=== PATIENT | female | born 1940 | race Caucasian/White ===

== ENCOUNTER 2020-06-28 23:30 | Observation (INO) | payer MEDICARE ==
[2020-06-29] MEDS ORDERED: ACETAMINOPHEN TAB 500 MG TAB PO PRN (05:59)
[2020-06-29] MEDS ORDERED: NITROGLYCERIN SL TABS 0.4 MG TAB SUBLINGUAL PRN (05:59)
[2020-06-29] MEDS ORDERED: TEMAZEPAM 15 MG CAP PO PRN (05:59)
[2020-06-29 08:05] LABS: Basophils % (A) 0 %; Eosinophils % (A) 1 %; HCT 38.1 % (34.0-46.0); HGB 12.6 gm/dL (11.4-16.0); Lymphocytes # (A) 2.2 k/uL (1.0-4.8); Lymphocytes % (A) 41 %; MCH 28.4 pg (25.0-35.0); MCHC 33.1 g/dL (31.0-37.0); MCV 85.6 fL (80.0-100.0); Mean Platelet Volume 7.1; Monocytes # (A) 0.4 k/uL (0-1.0); Monocytes % (A) 8 %; Neutrophils # (A) 2.6 k/uL (1.3-7.7); Neutrophils % (A) 48 %; Platelet Count 270 k/uL (150-450); RBC 4.45 m/uL (3.80-5.40); RDW 14.3 % (11.5-15.5); WBC 5.3 k/uL (3.8-10.6)
[2020-06-29 08:18] LABS: Calcium 9.5 mg/dL (8.4-10.2); Potassium 4.1 mmol/L (3.5-5.1)
[2020-06-29] MEDS: DILTIAZEM CD 240 MG CAP.ER.24H PO SCH (08:55)
--- NOTE | 2020-06-29 09:57 | P.HPIM ---
History of Present Illness This is a pleasant 79 years old female with past medical history of COPD, gastroesophageal reflux disease, hypertension, hyperlipidemia, supraventricular tachycardia, history of diverticulitis. Patient was transferred from [facility]. As per records patient presents because of chest pain on the left side radiating to the back Patient states that she went to [facility] yesterday because she has chest pain on on all 4 distal last 2 weeks however yesterday was more severe about 8/10 so she decided to come to the hospital. Her chest pain is on the left side go around the left armpit to the back. Her pain felt like sharp, With associated palpitation on and off that usually wakes her up from sleep and after a while it goes away but yesterday it resisted. Usually they have been together the palpitation and chest pain. She denies dyspnea or coughing or upper respiratory symptoms. No nausea vomiting or diarrhea or abdominal pain. No dysuria or urinary symptoms. No headache or weakness. Patient is complaining of from chronic numbness in her 3 left medial toes, but she denies weakness or slurred speech or headache or blurred vision She denies a smoking, alcohol or illicit drugs She used to see the automatic blocker for her SVT but he is retired now [facility] records showing: showing normal WBC 6.9K, hemoglobin 13.2, platelets 312 K. Normal sodium 142, potassium 3.8, creatinine 0.9, liver enzymes not elevated with AST 2200 ALT 15 and total bilirubin 0.3. CPK is 118. Troponin less than 0.0122. Magnesium 2.0. ProBNP is 259 CTA of the chest/abdomen/pelvis :( per radiologist's report) No acute abnormality of the CTA chest, abdomen or pelvis, large hiatal hernia, no pulmonary embolism, no aortic dissection additional chronic and incidental findings include mild to moderate stenosis of the right renal artery and mild of the celiac artery. Chronic mild compression deformity of L4, moderate kyphosis of the cervical and thoracic spine. CT of the head without contrast: No acute intracranial abnormality per radiologist Report EKG showing sinus tachycardia at [address]-T changes. [facility]: EKG: Normal sinus rhythm at 83 BPM with no significant ST-T changes and QTC 470. There is mild ST segment elevation in lead 2, 3, V5 and 6, looks like urethral presentation Review of Systems CONSTITUTIONAL: No fever, no malaise, no fatigue. HEENT: No recent visual problems or hearing problems. Denied any sore throat. CARDIOVASCULAR: No orthopnea, PND, no palpitations, no syncope. PULMONARY: No shortness of breath, no cough, no hemoptysis. GASTROINTESTINAL: No diarrhea, no nausea, no vomiting, no abdominal pain. Normoactive bowel sounds. NEUROLOGICAL: No headaches, no weakness, no numbness. HEMATOLOGICAL: Denies any bleeding or petechiae. GENITOURINARY: Denies any burning micturition, frequency, or urgency. MUSCULOSKELETAL/RHEUMATOLOGICAL: Denies any joint pain, swelling, or any muscle pain. ENDOCRINE: Denies any polyuria or polydipsia. Past Medical History Past Medical History: Chest Pain / Angina, COPD, GERD/Reflux, Hyperlipidemia, Hypertension, Pneumonia, Supraventricular Tachycardia (SVT) Additional Past Medical History / Comment(s): Diverticulitis, nodule in the lung History of Any Multi-Drug Resistant Organisms: None Reported Past Surgical History: Hernia Repair, Hysterectomy, Orthopedic Surgery Additional Past Surgical History / Comment(s): Partial Hysterectomy Past Anesthesia/Blood Transfusion Reactions: No Reported Reaction Past Psychological History: Anxiety Smoking Status: Never smoker - Past Family History Mother Family Medical History: Cancer Additional Family Medical History / Comment(s): Breast CA Father Family Medical History: Cancer Additional Family Medical History / Comment(s): Skin CA Medications and Allergies Home Medications Medication Instructions Recorded Confirmed Type Cholecalciferol (Vitamin D3) 125 mcg PO HS 06/29/20 06/29/20 History [Vitamin D3 (5000 Iu)] Cognium 1 tab PO BID 06/29/20 06/29/20 History Diltiazem Cd [Cardizem Cd] 240 mg PO DAILY 06/29/20 06/29/20 History Magnesium 100mg 100 mg PO HS 06/29/20 06/29/20 History Multivitamin [Multivitamins Adult 1 tab PO DAILY 06/29/20 06/29/20 History Gummies] Nitroglycerin Sl Tabs [Nitrostat] 0.4 mg SUBLINGUAL Q5M PRN 06/29/20 06/29/20 History Omeprazole 20 mg PO HS 06/29/20 06/29/20 History Pravastatin Sodium [Pravachol] 20 mg PO HS 06/29/20 06/29/20 History Temazepam [Restoril] 15 mg PO HS 06/29/20 06/29/20 History Allergies Allergy/AdvReac Type Severity Reaction Status Date / Time oxytetracycline Allergy Unknown Verified 06/29/20 08:57 [From Terramycin] Sulfa (Sulfonamide Allergy Swelling Verified 06/29/20 08:57 Antibiotics) aspirin AdvReac Unknown Verified 06/29/20 08:57 Physical Exam Vitals: Vital Signs Temp Pulse Resp BP Pulse Ox 06/29/20 03:27 98.0 F 86 18 137/74 96 06/29/20 02:01 98.2 F 96 18 134/80 97 06/29/20 02:00 96 18 Intake and Output 06/28/20 06/29/20 06/29/20 22:59 06:59 14:59 Intake Total 10 Balance 10 Intake: IV 10 0.9 10 Other: Voiding Method Toilet # Voids 1 Weight 59.2 kg GENERAL: The patient is alert and oriented x3, not in any acute distress. Well developed, well nourished. HEENT: Pupils are round and equally reacting to light. EOMI. No scleral icterus. No conjunctival pallor. Normocephalic, atraumatic. No pharyngeal erythema. No thyromegaly. CARDIOVASCULAR: S1 and S2 present. No murmurs, rubs, or gallops. PULMONARY: Chest is clear to auscultation, no wheezing or crackles. ABDOMEN: Soft, nontender, nondistended, normoactive bowel sounds. No palpable organomegaly. MUSCULOSKELETAL: No joint swelling or deformity. EXTREMITIES: No cyanosis, clubbing, or pedal edema. NEUROLOGICAL: Gross neurological examination did not reveal any focal deficits. SKIN: No rashes. 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 Positive troponin, cardiology consult. Continue with aspirin. Telemetry. Start patient on Plavix, patient is ALLERGIC to aspirin. Follow-up echocardiogram Labs and medication were reviewed.. Continue same treatment. Continue with symptomatic treatment. Resume home medication. Monitor lytes and vitals. DVT and GI prophylaxis. Further recommendations depends on the clinical course of the patient DVT prophylaxis: Subcutaneous heparin GI Prophylaxis: Ppi PT/OT: Pending Prognosis is guarded
[2020-06-29] MEDS ORDERED: CLOPIDOGREL 75 MG TAB PO SCH (10:15)
--- NOTE | 2020-06-29 12:04 | P.CRDCN ---
History of Present Illness Consult date: 06/29/20 History of present illness: HISTORY OF PRESENT ILLNESS: This is a 79-year-old female with a past medical history significant for COPD, GERD, hyperlipidemia, and SVT. Patient used to follow with Dr. Iglesias. We have been asked to see the patient in consultation for chest pain. Patient examined at the bedside. patient states she was at home yesterday laying down when she began developing chest discomfort around 2 PM. She states the pain was on the left side of her chest and went underneath her left breast and wrapped around to her back. She describes the pain as a sharp sensation. She denies any associated shortness of breath. She denied nausea or vomiting. She denied dizziness or lightheadedness. Denied any radiation to her jaw or arm. She states the pain lasted until approximately 10 PM and then resolved on its own. She initially presented to [facility] and was transferred to [facility] for further evaluation. Patient had 2 negative troponins drawn and [facility]. Since then she has had one negative troponin at this facility. At the time of examination she denies any chest pain or pressure. She denies any shortness of breath. She states she has never been a smoker. She reports having a stress test performed greater than 5 years ago which was negative to her knowledge. She denies for having a cardiac catheterization previously. EKG reveals sinus mechanism with no signs of acute ischemia Chest xray performed at [facility] revealed large hiatal hernia with no acute cardiopulmonary process Patient underwent CTA of the chest at [facility] revealing no pericardial effusion or adenopathy. Lungs are clear without infiltrate or pleural effusion. No pneumothorax. No evidence of pulmonary embolism. Laboratory data: WBC 5.3. Hemoglobin 12.6. Platelet count 270. Sodium 140. Potassium 4.1. BUN 12. Creatinine 0.78. Magnesium 2.0. Troponin negative 3. TSH 2.640. Current home cardiac medications include pravastatin 20 mg daily and Cardizem CD 240 mg daily REVIEW OF SYSTEMS: At the time of my exam: CONSTITUTIONAL: Denies fever or chills. HEENT: Denies blurred vision, vision changes, or eye pain. Denies hemoptysis CARDIOVASCULAR: Denies chest pain. Denies orthopnea. Denies PND. Denies palpitations RESPIRATORY: Denies shortness of breath. GASTROINTESTINAL: Denies abdominal pain. Denies nausea or vomiting. HEMATOLOGIC: Denies bleeding disorders. GENITOURINARY: Denies any blood in urine. SKIN: Denies pruitis. Denies rash. PHYSICAL EXAM: VITAL SIGNS: Reviewed. GENERAL: Well-developed in no acute distress. HEENT: Head is normocephalic. Pupils are equal, round. Sclerae anicteric. Mucous membranes of the mouth are moist. Neck supple. No JVD or thyromegaly LUNGS: Respirations even and unlabored. Lungs essentially clear to auscultation bilaterally. HEART: Regular rate and rhythm. S1 and S2 heard. ABDOMEN: Soft. Nondistended. Nontender. EXTREMITIES: Normal range of motion. No clubbing or cyanosis. Peripheral pulses intact. No lower extremity edema NEUROLOGIC: Awake and alert. Oriented x 3. ASSESSMENT: Chest pain, troponins negative 3 Hyperlipidemia History of SVT COPD GERD Large hiatal hernia PLAN: An acute coronary event has been ruled out Resume home cardiac medications Continue to monitor blood pressure. Continue telemetry monitoring Obtain 2-D echo to assess cardiac structure and function If no significant abnormalities noted on echocardiogram the patient may be discharged home today from a cardiac perspective and follow up on an outpatient basis for outpatient stress testing. Further recommendations pending patient course Nurse practitioner note has been reviewed by physician. Signing provider agrees with the documented findings, assessment, and plan of care. Past Medical History Past Medical History: Chest Pain / Angina, COPD, GERD/Reflux, Hyperlipidemia, Hypertension, Pneumonia, Supraventricular Tachycardia (SVT) Additional Past Medical History / Comment(s): Diverticulitis, nodule in the lung History of Any Multi-Drug Resistant Organisms: None Reported Past Surgical History: Hernia Repair, Hysterectomy, Orthopedic Surgery Additional Past Surgical History / Comment(s): Partial Hysterectomy Past Anesthesia/Blood Transfusion Reactions: No Reported Reaction Past Psychological History: Anxiety Smoking Status: Never smoker - Past Family History Mother Family Medical History: Cancer Additional Family Medical History / Comment(s): Breast CA Father Family Medical History: Cancer Additional Family Medical History / Comment(s): Skin CA Medications and Allergies Home Medications Medication Instructions Recorded Confirmed Type Cholecalciferol (Vitamin D3) 125 mcg PO HS 06/29/20 06/29/20 History [Vitamin D3 (5000 Iu)] Cognium 1 tab PO BID 06/29/20 06/29/20 History Diltiazem Cd [Cardizem Cd] 240 mg PO DAILY 06/29/20 06/29/20 History Magnesium 100mg 100 mg PO HS 06/29/20 06/29/20 History Multivitamin [Multivitamins Adult 1 tab PO DAILY 06/29/20 06/29/20 History Gummies] Nitroglycerin Sl Tabs [Nitrostat] 0.4 mg SUBLINGUAL Q5M PRN 06/29/20 06/29/20 History Omeprazole 20 mg PO HS 06/29/20 06/29/20 History Pravastatin Sodium [Pravachol] 20 mg PO HS 06/29/20 06/29/20 History Temazepam [Restoril] 15 mg PO HS 06/29/20 06/29/20 History Allergies Allergy/AdvReac Type Severity Reaction Status Date / Time oxytetracycline Allergy Unknown Verified 06/29/20 08:57 [From Terramycin] Sulfa (Sulfonamide Allergy Swelling Verified 06/29/20 08:57 Antibiotics) aspirin AdvReac Unknown Verified 06/29/20 08:57 Physical Exam Vitals: Vital Signs Temp Pulse Resp BP Pulse Ox 06/29/20 08:49 98.2 F 87 16 114/72 95 06/29/20 08:00 87 16 06/29/20 03:27 98.0 F 86 18 137/74 96 06/29/20 02:01 98.2 F 96 18 134/80 97 06/29/20 02:00 96 18 Intake and Output 06/28/20 06/29/20 06/29/20 22:59 06:59 14:59 Intake Total 10 Balance 10 Intake: IV 10 0.9 10 Other: Voiding Method Toilet Toilet # Voids 1 Weight 59.2 kg Results 06/29/20 07:17 06/29/20 07:17 Cardiac Enzymes 06/29/20 Range/Units 07:17 Troponin I <0.012 (0.000-0.034) ng/mL CBC 06/29/20 Range/Units 07:17 WBC 5.3 (3.8-10.6) k/uL RBC 4.45 (3.80-5.40) m/uL Hgb 12.6 (11.4-16.0) gm/dL Hct 38.1 (34.0-46.0) % Plt Count 270 (150-450) k/uL Comprehensive Metabolic Panel 06/29/20 Range/Units 07:17 Sodium 140 (137-145) mmol/L Potassium 4.1 (3.5-5.1) mmol/L Chloride 108 H (98-107) mmol/L Carbon Dioxide 26 (22-30) mmol/L BUN 12 (7-17) mg/dL Creatinine 0.78 (0.52-1.04) mg/dL Glucose 101 H (74-99) mg/dL Calcium 9.5 (8.4-10.2) mg/dL Current Medications Generic Name Dose Route Start Last Admin Trade Name Freq PRN Reason Stop Dose Admin Acetaminophen 500 mg 06/29/20 05:59 Acetaminophen Tab 500 Mg Tab PO TID PRN pain Cholecalciferol 125 mcg 06/29/20 21:00 Cholecalciferol 25 Mcg (1000 Iu) Tablet PO HS GAMALIEL Clopidogrel Bisulfate 75 mg 06/29/20 10:15 Clopidogrel 75 Mg Tab PO DAILY GAMALIEL Diltiazem HCl 240 mg 06/29/20 09:00 06/29/20 08:55 Diltiazem Cd 240 Mg Cap.Er.24h PO 240 mg DAILY GAMALIEL Administration Heparin Sodium (Porcine) 5,000 unit 06/29/20 21:00 Heparin Sodium,Porcine 5,000 Unit/Ml 1 Ml Vial SQ Q12HR GAMALIEL Magnesium Oxide 400 mg 06/29/20 21:00 Magnesium Oxide 400 Mg Tab PO HS GAMALIEL Nitroglycerin 0.4 mg 06/29/20 05:59 Nitroglycerin Sl Tabs 0.4 Mg Tab SUBLINGUAL ONCE PRN Chest Pain Pantoprazole Sodium 40 mg 06/29/20 21:00 Pantoprazole 40 Mg Tablet PO HS GAMALIEL Pravastatin Sodium 20 mg 06/29/20 21:00 Pravastatin Sodium 20 Mg Tab PO HS GAMALIEL Temazepam 15 mg 06/29/20 05:59 Temazepam 15 Mg Cap PO HS PRN Insomnia Intake and Output 06/28/20 06/29/20 06/29/20 22:59 06:59 14:59 Intake Total 10 Balance 10 Intake: IV 10 0.9 10 Other: Voiding Method Toilet Toilet # Voids 1 Weight 59.2 kg 06/29/20 07:17 06/29/20 07:17
--- NOTE | 2020-06-29 14:40 | ECHOF ---
Referral Reason:Chest pain, LV function MEASUREMENTS -------- HEIGHT: 160.0 cm WEIGHT: 59.0 kg BP: IVSd: 1.0 cm (0.6 - 1.1) LVIDd: 2.9 cm (3.9 - 5.3) LVPWd: 0.9 cm (0.6 - 1.1) EDV(Teich): 32 ml IVSs: 1.4 cm LVIDs: 1.9 cm LVPWs: 1.4 cm %IVS Thck: 43 % ESV(Teich): 11 ml EF(Teich): 64 % %FS: 34 % SV(Teich): 20 ml LA Diam: 2.6 cm (2.7 - 3.8) RVIDd: 2.7 cm (< 3.3) LALs A4C: 4.5 cm LAAs A4C: 12.3 cm LAESV A-L A4C: 28 ml LAESV MOD A4C: 27 ml LALs A2C: 5.5 cm LAAs A2C: 15.4 cm LAESV A-L A2C: 37 ml LAESV MOD A2C: 35 ml LAESV(A-L): 36 ml LAESV Index (A-L): 22.06 ml/m Ao Diam: 2.9 cm (2.0 - 3.7) AV Cusp: 2.0 cm (1.5 - 2.6) EPSS: 0.7 cm MV E David: 0.99 m/s MV DecT: 215 ms MV Dec [place]: 4.6 m/s MV A David: 1.00 m/s MV E/A Ratio: 0.99 MV PHT: 62 ms AV Vmax: 1.31 m/s AV maxP.85 mmHg AR Vmax: 3.16 m/s AR maxP.97 mmHg AR PHT: 768 ms AR Dec Time: 2648 ms AR Dec [place]: 1.2 m/s TR Vmax: 2.31 m/s TR maxP.31 mmHg RAP: 5.00 mmHg RVSP: 26.31 mmHg MV EF SLOPE: 43.15 mm/s (70 - 150) MV EXCURSION: 13.54 mm (> 18.000) FINDINGS -------- Sinus rhythm. This was a technically good study. The left ventricular size is normal. Left ventricular wall thickness is normal. Overall left vent ricular systolic function is normal with, an EF between 60 - 65 %. The right ventricle is normal in size. Normal LA size by volume 22+/-6 ml/m2. The right atrium is normal in size. Interatrial and interventricular septum intact. There is mild aortic valve sclerosis. There is mild aortic regurgitation. Mild mitral annular calcification present. There is trace to mild mitral regurgitation. Mild tricuspid regurgitation present. Right ventricular systolic pressure is normal at < 35 mmHg. There is no pulmonic regurgitation present. The aortic root size is normal. Normal inferior vena cava with normal inspiratory collapse consistent with estimated right atrial pre ssure of 5 mmHg. There is no pericardial effusion. CONCLUSIONS -------- 1. The left ventricular size is normal. 2. Left ventricular wall thickness is normal. 3. Overall left ventricular systolic function is normal with, an EF between 60 - 65 %. 4. There is mild aortic valve sclerosis. 5. There is mild aortic regurgitation. 6. Mild mitral annular calcification present. 7. There is trace to mild mitral regurgitation. 8. Mild tricuspid regurgitation present. 9. There is no pericardial effusion. VP PLATFORMS: Ria Atwood RDCS
[2020-06-29] MEDS: HEPARIN SODIUM,PORCINE 5,000 UNIT/ML 1 ML VIAL SQ SCH (19:52)
[2020-06-29] MEDS ORDERED: PANTOPRAZOLE 40 MG TABLET PO SCH (21:00)
[2020-06-29] MEDS ORDERED: MAGNESIUM OXIDE 400 MG TAB PO SCH (21:00)
[2020-06-29] MEDS ORDERED: CHOLECALCIFEROL 25 MCG (1000 IU) TABLET PO SCH (21:00)
[2020-06-29] MEDS ORDERED: PRAVASTATIN SODIUM 20 MG TAB PO SCH (21:00)
[2020-06-30 03:55] VITALS: TEMP 98
[2020-06-30 08:24] VITALS: BP 110/67; PULSE 89; RESP 16
[2020-06-30] MEDS: HEPARIN SODIUM,PORCINE 5,000 UNIT/ML 1 ML VIAL SQ SCH (08:24)
[2020-06-30] MEDS: DILTIAZEM CD 240 MG CAP.ER.24H PO SCH (08:24)
--- NOTE | 2020-06-30 12:30 | P.PN ---
Subjective Progress Note Date: 06/30/20 HISTORY OF PRESENT ILLNESS: This is a 79-year-old female with a past medical history significant for COPD, GERD, hyperlipidemia, and SVT. Patient used to follow with Dr. Iglesias. We have been asked to see the patient in consultation for chest pain. Patient examined at the bedside. patient states she was at home yesterday laying down when she began developing chest discomfort around 2 PM. She states the pain was on the left side of her chest and went underneath her left breast and wrapped around to her back. She describes the pain as a sharp sensation. She denies any assoc iated shortness of breath. She denied nausea or vomiting. She denied dizziness or lightheadedness. Denied any radiation to her jaw or arm. She states the pain lasted until approximately 10 PM and then resolved on its own. She initially presented to [facility] and was transferred to [facility] for further evaluation. Patient had 2 negative troponins drawn and [facility]. Since then she has had one negative troponin at this facility. At the time of examination she denies any chest pain or pressure. She denies any shortness of breath. She states she has never been a smoker. She reports having a stress test performed greater than 5 years ago which was negative to her knowledge. She denies for having a cardiac catheterization previously. EKG reveals sinus mechanism with no signs of acute ischemia Chest xray performed at [facility] revealed large hiatal hernia with no acute cardiopulmonary process Patient underwent CTA of the chest at [facility] revealing no pericardial effusion or adenopathy. Lungs are clear without infiltrate or pleural effusion. No pneumothorax. No evidence of pulmonary embolism. Laboratory data: WBC 5.3. Hemoglobin 12.6. Platelet count 270. Sodium 140. Potassium 4.1. BUN 12. Creatinine 0.78. Magnesium 2.0. Troponin negative 3. TSH 2.640. Current home cardiac medications include pravastatin 20 mg daily and Cardizem CD 240 mg daily 06/30/2020 Patient examined this morning at the bedside. Patient denies chest pain or pressure. She denies shortness of breath. Vital signs are stable. Echocardiogram completed revealed ejection fraction 60-65%, mild tricuspid regurgitation, trace to mild mitral regurgitation, mild aortic regurgitation. PHYSICAL EXAM: VITAL SIGNS: Reviewed. GENERAL: Well-developed in no acute distress. HEENT: Head is normocephalic. Pupils are equal, round. Sclerae anicteric. Mucous membranes of the mouth are moist. Neck supple. No JVD or thyromegaly LUNGS: Respirations even and unlabored. Lungs essentially clear to auscultation bilaterally. HEART: Regular rate and rhythm. S1 and S2 heard. ABDOMEN: Soft. Nondistended. Nontender. EXTREMITIES: Normal range of motion. No clubbing or cyanosis. Peripheral pulses intact. No lower extremity edema NEUROLOGIC: Awake and alert. Oriented x 3. ASSESSMENT: Chest pain, troponins negative 3 Hyperlipidemia History of SVT COPD GERD Large hiatal hernia PLAN: Patient may be discharged home today from a cardiac perspective and follow up on an outpatient basis for outpatient stress testing. We will sign off. Please reconsult if needed. Nurse practitioner note has been reviewed by physician. Signing provider agrees with the documented findings, assessment, and plan of care. Objective - Vital Signs Vital signs: Vital Signs Temp 98.0 F 06/30/20 08:23 Pulse 89 06/30/20 08:23 Resp 16 06/30/20 08:23 BP 110/67 06/30/20 08:23 Pulse Ox 95 06/30/20 08:23 Intake & Output 06/29/20 06/30/20 06/30/20 18:59 06:59 18:59 Intake Total 356 10 Balance 356 10 Weight 59 kg Intake: IV 10 0.9 10 Oral 356 Other: Voiding Method Toilet Toilet Toilet # Voids 3 1 - Labs CBC & Chem 7: 06/29/20 07:17 06/29/20 07:17
--- NOTE | 2020-06-30 23:24 | P.DS ---
Providers Date of admission: 06/29/20 01:50 Attending physician: Claudia Jade Consults: 06/29/20 05:58 Consult Physician Routine Consulting Provider: Gilbert Finney Consult Reason/Comments: Chest Pain Do you want consulting provider notified?: Yes, Notify in am Primary care physician: Dilcia Cisneros [facility] Course: Diagnoses: Chest pain, associated with palpitation . Resolved.. 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 Patient was transferred from [facility]. As per records patient presents because of chest pain on the left side radiating to the back Patient states that she went to [facility] yesterday because she has chest pain associated with some palpitation. Patient evaluated by manager operations and procurement. Patient has negative troponin. Patient symptoms are completely resolved and on the day of discharge patient states chest pain as 0/10. TA of the chest/abdomen/pelvis :( per radiologist's report) No acute abnormality of the CTA chest, abdomen or pelvis, large hiatal hernia, no pulmonary embolism, no aortic dissection additional chronic and incidental findings include mild to moderate stenosis of the right renal artery and mild of the celiac artery. With resolution of symptoms. Patient denies any other symptoms on discharge she denies chest pain dyspnea, no abdominal pain, no change in urine or bowel habits. No fever Patient was cleared for discharge by manager operations and procurement Problems and management plan were discussed with the patient and he verbalized understanding and acceptance Patient was found stable and can be discharged home however he needs follow-up as an outpatient. Patient was instructed to follow up with PCP Dr. Ha within one week and patient agrees. Also patient was instructed to follow up with Dr. Spence in 2 weeks and sugars and make appointment has today is week and Physical exam Gen: patient is a AAOx3, no distress CVS: S1-S2, RRR, no murmur Lungs: B/L CTA, no wheezing Abdomen: soft, no distention, no tenderness, positive bowel sounds Extremity: no leg edema or induration Time spent more than 35 minutes Plan - Discharge Summary Discharge Rx Participant: No New Discharge Prescriptions: Continue Omeprazole 20 mg PO HS Nitroglycerin Sl Tabs [Nitrostat] 0.4 mg SUBLINGUAL Q5M PRN PRN Reason: Chest Pain Pravastatin Sodium [Pravachol] 20 mg PO HS Diltiazem Cd [Cardizem CD] 240 mg PO DAILY Cholecalciferol (Vitamin D3) [Vitamin D3 (5000 Iu)] 125 mcg PO HS Multivitamin [Multivitamins Adult Gummies] 1 tab PO DAILY Changed Temazepam [Restoril] 7.5 mg PO HS #0 Discontinued Magnesium 100mg 100 mg PO HS Cognium 1 tab PO BID Discharge Medication List Cholecalciferol (Vitamin D3) [Vitamin D3 (5000 Iu)] 125 mcg PO HS 06/29/20 [History] Diltiazem Cd [Cardizem CD] 240 mg PO DAILY 06/29/20 [History] Multivitamin [Multivitamins Adult Gummies] 1 tab PO DAILY 06/29/20 [History] Nitroglycerin Sl Tabs [Nitrostat] 0.4 mg SUBLINGUAL Q5M PRN 06/29/20 [History] Omeprazole 20 mg PO HS 06/29/20 [History] Pravastatin Sodium [Pravachol] 20 mg PO HS 06/29/20 [History] Temazepam [Restoril] 7.5 mg PO HS #0 06/30/20 [Rx] Follow up Appointment(s)/Referral(s): Antonio Hinojosa MD [STAFF PHYSICIAN] - 2 Weeks Dilcia Cisneros CRNP [Primary Care Provider] - 1 Week Patient Instructions/Handouts: Chest Pain (DC) Activity/Diet/Wound Care/Special Instructions: Heart healthy diet Activity is restricted until you see your doctor Discharge Disposition: HOME SELF-CARE
== END 2020-06-30 14:15 | disposition home or self-care (01) ==
LOC: 3SCARD 06-29 01:50
PROVIDERS: ADMIT Internal Medicine; ATTEND Internal Medicine
DX: R07.89 Other chest pain (principal); R00.2 Palpitations; R20.0 Anesthesia of skin; I70.1 Atherosclerosis of renal artery; J44.9 Chronic obstructive pulmonary disease, unspecified; K21.9 Gastro-esophageal reflux disease without esophagitis; I10 Essential (primary) hypertension; E78.5 Hyperlipidemia, unspecified; I47.1 Supraventricular tachycardia; Z87.19 Personal history of other diseases of the digestive system; Z87.01 Personal history of pneumonia (recurrent); R91.1 Solitary pulmonary nodule; Z90.711 Acquired absence of uterus with remaining cervical stump; F41.9 Anxiety disorder, unspecified; Z80.3 Family history of malignant neoplasm of breast; Z80.8 Family history of malignant neoplasm of other organs or systems; Z79.899 Other long term (current) drug therapy; Z88.2 Allergy status to sulfonamides; Z88.6 Allergy status to analgesic agent; Z88.1 Allergy status to other antibiotic agents; K44.9 Diaphragmatic hernia without obstruction or gangrene; G47.00 Insomnia, unspecified
CPT/HCPCS: 96372 ×2; 93005; 93306; 80048; 84443; 83735; 84484; 85025; G0378 ×2; G0379; J1644 ×2